=== PATIENT | male | born 1980 | race Caucasian/White ===

== ENCOUNTER → 2022-01-22 | Outpatient (CLI) | payer SELFPAY ==
[~2022-01-22] MED LIST: ELIQUIS 5 MG TAB5 MG PO; KEFLEX CAP 500500 MG PO
[2022-01-22 15:11] LABS: HEMOGLOBIN 15.8 gm/dl (14.0-17.5); RED BLOOD COUNT 4.81 M/UL (4.20-5.50); WHITE BLOOD COUNT 13.6 K/UL (4.5-11.0)
[2022-01-22 15:37] LABS: BUN/CREATININE RATIO 15 (0-10)
== END ==
LOC: LAB 14:21
PROVIDERS: Nurse Practitioner
DX: M54.6 Pain in thoracic spine (principal); R73.9 Hyperglycemia, unspecified; R53.83 Other fatigue; R31.9 Hematuria, unspecified; M47.816 Spondylosis without myelopathy or radiculopathy, lumbar region; M47.814 Spondylosis without myelopathy or radiculopathy, thoracic region
CPT/HCPCS: 36415; 72072; 72110; 80053; 83036; 83735; 84100; 84153; 84436; 84443; 85027; 85610; 85730; 87086

== ENCOUNTER → 2022-03-27 | Outpatient (CLI) | payer SELFPAY | LOC: HEART 5 03-19 11:00 | DX: I20.9 Angina pectoris, unspecified (principal) ==

== ENCOUNTER → 2022-05-14 | Outpatient (CLI) | payer SELFPAY | LOC: KOH-I 12:21 | DX: S34.109A Unspecified injury to unspecified level of lumbar spinal cord, initial encounter (principal); S32.2XXA Fracture of coccyx, initial encounter for closed fracture; M53.3 Sacrococcygeal disorders, not elsewhere classified | CPT/HCPCS: 72100; 72220 ==

== ENCOUNTER → 2022-05-25 | Outpatient (CLI) | payer SELFPAY | LOC: KOH-I 05-24 13:45 | DX: M54.50 Low back pain, unspecified (principal); M51.17 Intervertebral disc disorders with radiculopathy, lumbosacral region | CPT/HCPCS: 72148 ==